=== PATIENT | female | born 1940 | race Two or more races ===

== ENCOUNTER 2017-12-12 15:11 | Inpatient (IN) | payer OTHER ==
[2017-12-12] MEDS ORDERED: fentaNYL 100 MCG/2 ML INJ ONE (15:18)
[2017-12-12] MEDS ORDERED: LIDOCAINE 1% 300 MG/30 ML SDV ONE (15:18)
[2017-12-12] MEDS ORDERED: ASPIRIN 81 MG CHEWABLE TAB ONE (15:18)
[2017-12-12] MEDS ORDERED: IOPAMIDOL (ISOVUE-370) 150 ML BTL IV ONE (15:19)
[2017-12-12] MEDS ORDERED: MIDAZOLAM 2 MG/2 ML VIAL ONE ×2 (15:19)
[2017-12-12] MEDS ORDERED: ASPIRIN 81 MG CHEWABLE TAB PO ONE (15:20)
--- NOTE | 2017-12-12 15:22 | EDPHY ---
H & P Time Seen by Provider: 12/12/17 15:11 HPI/ROS: CHIEF COMPLAINT: Chest pain cardiac alert HISTORY OF PRESENT ILLNESS: Brought in by EMS after she started having substernal chest discomfort at 2:45 p.m.. Initial EMS EKG was negative but on arrival he called a cardiac alert for ST changes. Patient denies cough shortness of breath diaphoresis or radiation. Not better worse with anything. Symptoms moderate. She refused aspirin from EMS because of a history of ulcers REVIEW OF SYSTEMS: Eye: no change in vision ENT: no sore throat Cardiac: HPI Pulmonary: no cough or SOB Abdomen: no vomiting, diarrhea, abdominal pain Musculoskeletal: no back pain Skin: no rash Neuro: no headache Constitutional: no fever : no urinary symptoms A comprehensive 10 point review of systems is otherwise negative aside from elements mentioned in the history of present illness. PAST MEDICAL HISTORY: Reflux and gastric ulcer Social history: , arrives at 3:20 p.m. And is able to speak with Dr. Cordoba. General Appearance: Alert and conversant, cooperative. Eyes: No scleral icterus. ENT, Mouth: Normal mucous membranes. Respiratory: Normal respiratory effort, breath sounds equal, lungs are clear to auscultation. Cardiovascular: Regular rate and rhythm. Gastrointestinal: Abdomen is soft and non tender. Neurological: Alert, face symmetric, normal motor and sensory in extremities. Skin: Warm and dry, no rashes. Musculoskeletal: No peripheral edema. Psychiatric: Not agitated. Emergency Department course/MDM: EKG personally interpreted shows acute inferior ST elevation AR. Cardiac alert called and Dr. Cordoba is present at bedside will take the patient directly to the catheterization lab. Oral aspirin. Further diagnostic and therapeutic deferred to emergent transport to the catheterization lab. Constitutional: Initial Vital Signs Temperature (C) 36.5 C 12/12/17 15:11 Heart Rate 57 L 12/12/17 15:11 Respiratory Rate 20 12/12/17 15:11 Blood Pressure 85/49 L 12/12/17 15:11 O2 Sat (%) 97 12/12/17 15:11 O2 Delivery Mode Room Air Allergies/Adverse Reactions: No Known Allergies Allergy (Verified 12/12/17 20:09) Home Medications: Medication Instructions Recorded Cholecalciferol Vit D3 [Vitamin D3 1,000 units PO DAILY 12/12/17 (*)] Herbals/Supplements -Info Only 1 tab PO DAILY 12/12/17 Lansoprazole [Prevacid] 15 mg PO DAILY 12/12/17 Magnesium Oxide [Magnesium Oxide 400 mg PO DAILY 12/12/17 400 mg (*)] Melatonin [Melatonin 3 MG (*)] 3 mg PO HS PRN 12/12/17 Multivitamins [Multivitamin (*)] 1 tab PO DAILY 12/12/17 Medical Decision Making - Diagnostics EKG Interpretation: 12-lead EKG interpreted by me; official reading is in trace master. My interpretation is sinus rhythm rate 98, acute inferior ST-elevation pattern consistent with myocardial infarction. Differential Diagnosis: Differential diagnosis considered for chest pain including but not limited to myocardial ischemia, aortic dissection, pericarditis, pulmonary embolus, chest wall pain, pleural inflammation and pulmonary infectious causes. Critical Care Time: Critical care time spent by me, Dr. Crockett, exclusively with the care of this patient was 15 minutes, exclusive of PA or CYBER SECURITY SYSTEMS ENGINEER time and exclusive of separate procedures. The organ system at risk was cardiovascular and I ordered oral aspirin, cardiology consultation and cardiac alert, to stabilize the patient and prevent worsening of the patient's condition. - Data Points Laboratory Results: Laboratory Results 12/12/17 15:18 12/12/17 15:18 12/12/17 12/12/17 12/12/17 15:18 15:18 15:18 WBC 10.38 10^3/uL H 10^3/uL (3.80-9.50) RBC 4.47 10^6/uL 10^6/uL (4.18-5.33) Hgb 12.8 g/dL g/dL (12.6-16.3) Hct 38.8 % % (38.0-47.0) MCV 86.8 fL fL (81.5-99.8) MCH 28.6 pg pg (27.9-34.1) MCHC 33.0 g/dL g/dL (32.4-36.7) RDW 13.2 % % (11.5-15.2) Plt Count 259 10^3/uL 10^3/uL (150-400) MPV 10.1 fL fL (8.7-11.7) Neut % (Auto) 49.9 % % (39.3-74.2) Lymph % (Auto) 39.4 % % (15.0-45.0) [place] % (Auto) 7.3 % % (4.5-13.0) Eos % (Auto) 2.7 % % (0.6-7.6) Baso % (Auto) 0.4 % % (0.3-1.7) Nucleat RBC Rel Count 0.0 % % (0.0-0.2) Absolute Neuts (auto) 5.18 10^3/uL 10^3/uL (1.70-6.50) Absolute Lymphs (auto) 4.09 10^3/uL H 10^3/uL (1.00-3.00) Absolute Monos (auto) 0.76 10^3/uL 10^3/uL (0.30-0.80) Absolute Eos (auto) 0.28 10^3/uL 10^3/uL (0.03-0.40) Absolute Basos (auto) 0.04 10^3/uL 10^3/uL (0.02-0.10) Absolute Nucleated RBC 0.00 10^3/uL 10^3/uL (0-0.01) Immature Gran % 0.3 % % (0.0-1.1) Immature Gran # 0.03 10^3/uL 10^3/uL (0.00-0.10) PT 14.8 SEC SEC (12.0-15.0) INR 1.14 (0.83-1.16) APTT 25.7 SEC SEC (23.0-38.0) Sodium 136 mEq/L mEq/L (135-145) Potassium 4.2 mEq/L mEq/L (3.5-5.2) Chloride 101 mEq/L mEq/L (97-110) Carbon Dioxide 26 mEq/l mEq/l (22-31) Anion Gap 9 mEq/L mEq/L (8-16) BUN 18 mg/dL mg/dL (7-23) Creatinine 0.8 mg/dL mg/dL (0.6-1.0) Estimated GFR > 60 Glucose 140 mg/dL H mg/dL (70-100) Calcium 9.0 mg/dL mg/dL (8.5-10.4) Magnesium CK-MB (CK-2) Fraction 1.55 ng/mL ng/mL (0.00-3.19) Troponin I < 0.012 ng/mL ng/mL (0.000-0.034) 12/12/17 15:00 WBC RBC Hgb Hct MCV MCH MCHC RDW Plt Count MPV Neut % (Auto) Lymph % (Auto) [place] % (Auto) Eos % (Auto) Baso % (Auto) Nucleat RBC Rel Count Absolute Neuts (auto) Absolute Lymphs (auto) Absolute Monos (auto) Absolute Eos (auto) Absolute Basos (auto) Absolute Nucleated RBC Immature Gran % Immature Gran # PT INR APTT Sodium Potassium Chloride Carbon Dioxide Anion Gap BUN Creatinine Estimated GFR Glucose Calcium Magnesium 1.8 mg/dL mg/dL (1.6-2.3) CK-MB (CK-2) Fraction Troponin I Medications Given: Amiodarone HCl 540 mg/ (Dextrose) 300 mls @ 16.667 mls/hr IV ONCE ONE Stop: 12/13/17 16:29 Last Admin: 12/12/17 22:07 Dose: 300 mls Sodium Chloride (Ns) 1,000 mls @ 100 mls/hr IV CONT DENA Stop: 12/13/17 03:14 Last Admin: 12/12/17 18:41 Dose: 1,000 mls Phenylephrine HCl 50 mg/ (Dextrose) 250 mls @ 0 mls/hr IV CONT DENA; Titrate PRN Reason: Protocol Stop: 06/10/18 17:59 Last Admin: 12/12/17 18:40 Dose: 250 mls Ondansetron HCl (Zofran) 2 - 4 mg IVP Q6HRS PRN PRN Reason: Nausea/Vomiting, Can't Take PO Stop: 06/10/18 17:12 Last Admin: 12/12/17 17:20 Dose: 4 mg Discontinued Medications Aspirin (Aspirin) 324 mg PO EDNOW ONE Stop: 12/12/17 15:21 Last Admin: 12/12/17 15:22 Dose: 324 mg Aspirin Buffered (Aspirin Ec) 325 mg PO ONCE ONE Stop: 12/12/17 17:14 Last Admin: 12/12/17 18:10 Dose: 325 mg Amiodarone HCl (Amiodarone Hcl) 200 mls @ 33.333 mls/hr IV ONCE ONE PRN Reason: Protocol Stop: 12/12/17 22:29 Last Admin: 12/12/17 18:34 Dose: 200 mls Ticagrelor (Brilinta) 180 mg PO ONCE ONE Stop: 12/12/17 17:14 Last Admin: 12/12/17 18:10 Dose: 180 mg Departure - Departure Disposition: To OP Cath/Surgery Clinical Impression: Acute AR Qualifiers: Myocardial infarction type: ST elevation myocardial infarction Involved coronary artery: unspecified coronary artery Qualified Code(s): I21.3 - ST elevation (STEMI) myocardial infarction of unspecified site Condition: Serious
[2017-12-12] MEDS ORDERED: BIVALIRUDIN 250 MG/5 ML VIAL IV ONE (15:23)
[2017-12-12 15:24] LABS: PLATELET COUNT 259 10^3/uL (150-400)
--- NOTE | 2017-12-12 15:28 | CPEKG ---
Heart Rate: 98 RR Interval: 612 P-R Interval: 144 QRSD Interval: 74 QT Interval: 416 QTC Interval: 532 P [place]: 44 QRS [place]: 57 T Wave [place]: 99 EKG Severity - ABNORMAL ECG - EKG Impression: SINUS RHYTHM EKG Impression: RUN OF VENTRICULAR PREMATURE COMPLEXES EKG Impression: ST ELEVATION, PROBABLE INFERIOR INJURY EKG Impression: ABNORMAL T, PROBABLE ISCHEMIA, ANT-LAT LEADS Electronically Signed By: Herb Crockett 12-Dec-2017 15:32:37
[2017-12-12] MEDS ORDERED: ONDANSETRON 4 MG/2 ML VIAL ONE ×2 (15:30→17:17)
[2017-12-12 15:32] LABS: INR 1.14 (0.83-1.16); PROTIME(PATIENT) 14.8 SEC (12.0-15.0)
--- NOTE | 2017-12-12 15:34 | PDPROPOC ---
Sedation Plan of Care Sedation Plan of Care: vital signs stable, mental status noted, patient educated of risks, benefits, alternatives, patient can tolerate sedation ASA Classification: ASA 3 Planned drugs: fentanyl, midazolam Mallampati Score: Class 1 Mallampati Reference Image: Patient passed 3-3-2 rule?: Yes
[2017-12-12] MEDS ORDERED: ATROPINE SULFATE 1 MG/10 ML SYR ONE ×2 (15:38→17:12)
--- NOTE | 2017-12-12 15:43 | PDHPUP ---
History & Physical Update H&P update statement: This history and physical update is based on an assessment of the patient which was completed after admission or registration (within 24 hours), but prior to the surgery/procedure. H&P update: H&P reviewed & patient examined, no change in patient's condition since H&P completed (See H&P dictated STAT.)
--- NOTE | 2017-12-12 15:58 | GHP ---
[f rep st] HISTORY AND PHYSICAL DATE OF ADMISSION: 12/12/2017 REASON FOR ADMISSION: Acute inferior ST-segment elevation myocardial infarction. HISTORY OF PRESENT ILLNESS: The patient is a 77-year-old woman who has no prior cardiac history. Th is afternoon, she was hiking when she began to develop significant chest pressure with some associate d shortness of breath. She returned home and laid down. She became very lightheaded. Her a ctivated the 911 system. En route and in the emergency room, ECG tracings demonstrate 1-[address] of infe rior ST-segment elevation. There are no reciprocal changes. She continues to have chest discomfort. PAST MEDICAL HISTORY: Notable for peptic ulcer disease/GERD. She does not have a history of hyperte nsion or type 2 diabetes. She states that she does have elevated cholesterol, but is not taking medi cation for it. PAST SURGICAL HISTORY: No past surgeries. FAMILY HISTORY: No family history of cardiac problems. SOCIAL HISTORY: She is . She is a nonsmoker. She does not consume alcohol. REVIEW OF SYSTEMS: Apart from the chest discomfort that prompted today's hospital encounter, a 10-po int review was negative. PHYSICAL EXAMINATION: VITAL SIGNS: Heart rate in the 70s with normal sinus rhythm on the monitor. Blood pressure 130/80. O2 saturation 96% on 2 L of nasal cannula oxygen. GENERAL: This is a 77-yea r-old woman who appears to be in moderate distress. She is alert and oriented. HEENT: Head a nd neck: No scleral icterus. Mucous membranes moist. Carotid pulses 2+ without bruits. There is n o JVD. CHEST: Lung cortez clear anteriorly. CARDIAC: Regular rate and rhythm with a normal S1 and S2. No murmur or gallop. ABDOMEN: Soft, nontender, nondistended, with normal bowel sounds. EXTRE MITIES: 2+ pulses and no peripheral edema. ECG: ECG demonstrates normal sinus rhythm with 1-[address]-segment elevation. There are n o Q-waves or conduction system disturbances. There were no reciprocal changes. LABORATORY: Pending at the time of this dictation. IMPRESSION: This is a 77-year-old woman early in the course of an acute inferior ST-segment elevatio n myocardial infarction. She has not had any significant arrhythmias. She is hemodynamically stable without evidence of congestive heart failure. PLAN: Preparations are underway to take the patient emergently to the cardiac cathode ray tube assembler for angiograp hy and probable PCI. She will require a hospital stay of greater than 2 midnights to care for her ac [place] myocardial infarction. /[id number]/MODL
[2017-12-12] MEDS ORDERED: PHENYLEPHRINE HCL 100 MCG/ML SYR ONE (16:01)
[2017-12-12] MEDS ORDERED: AMIODARONE HCL 150 MG/3 ML VIAL ONE (16:02)
[2017-12-12] MEDS ORDERED: DOPamine/DEXTROSE/250 ML BAG IV ONE (16:10)
[2017-12-12] MEDS ORDERED: AMIODARONE HCL 200 ML IV ONE (16:13)
[2017-12-12] MEDS ORDERED: EPTIFIBATIDE 200 MG/100 ML BOTTLE IV ONE (16:20)
[2017-12-12] MEDS ORDERED: AMIODARONE A.FIB-6HR INFSN (ORDER 2/3) PREMIX IV ONE (16:30)
--- NOTE | 2017-12-12 16:48 | CPEKG ---
Heart Rate: 134 RR Interval: 448 QRSD Interval: 80 QT Interval: 332 QTC Interval: 496 QRS [place]: 85 T Wave [place]: 81 EKG Severity - ABNORMAL ECG - EKG Impression: ATRIAL FIBRILLATION EKG Impression: INFERIOR INJURY, PROBABLE EARLY ACUTE INFARCT EKG Impression: BORDERLINE PROLONGED QT INTERVAL Electronically Signed By: Bo Martinez 13-Dec-2017 11:28:17
[2017-12-12] MEDS ORDERED: LORazepam 2 MG/ML INJ IVP PRN (17:13)
[2017-12-12] MEDS ORDERED: TEMAZEPAM 15 MG CAP PO PRN (17:13)
[2017-12-12] MEDS ORDERED: TICAGRELOR 90 MG TAB PO ONE (17:13)
[2017-12-12] MEDS ORDERED: ASPIRIN EC 325 MG TAB PO ONE (17:13)
[2017-12-12] MEDS ORDERED: ATROPINE SULFATE 1 MG/10 ML SYR IVP PRN (17:13)
[2017-12-12] MEDS ORDERED: HYDROCODONE/APAP 5/325 TAB PO PRN (17:13)
[2017-12-12] MEDS ORDERED: NITROGLYCERIN 0.4 MG BTL SL PRN (17:13)
[2017-12-12] MEDS ORDERED: NS 1,000 ML IV SCH (17:15)
[2017-12-12] MEDS: ONDANSETRON 4 MG/2 ML VIAL IVP PRN (17:20)
[2017-12-12] MEDS ORDERED: AMIODARONE HCL 200 ML IV SCH (17:30)
--- NOTE | 2017-12-12 17:39 | PDDXCAT ---
Diagnostic Cath Note - . Date: 12/12/17 Family Service Worker: Adalid Indication: other (Acute inferior STEMI) - Procedure Access: right groin Procedure: left heart catheterization, coronary angiography, left ventriculogram , other (PCI of the RCA) - Materials Left Heart Cath size: 6F Left Heart Cath materials: standard multipack (JL4, JR4, pigtail) - Findings-Left Heart Catheterization LM: Distal left main approximately 40%. LAD: Ostial LAD 60-70%; otherwise mild irregularities. LCX: Small cirumflex system with mild irregularites. RCA: Proximal to mid-RCA with diffuse moderate disease; mid-RCA with a focal > 90% lesion; JALYN I to II flow in the distal RCA. LVEF: 65-70% Wall motion: Inferior hypokinesis. Complications: VF x 1, hypotension, bradycardia, and atrial fibrillation with RVR. Estimated blood loss: <100ml Closure method: other (RFA and RFV sheaths sewn in place.) Assessment: 1) Acute inferior STEMI. 2) CAD as described above. 3) Successful PCI of the RCA using a single drug coated stent. Intervention: Based on the patient's clinical history and diagnostic angiography, the decision was made to perform percutaneous coronary intervention of the RCA. The patient received intravenous Angiomax. A 6 [place] JR 4 guide catheter was advanced to the right coronary ostium. An Intuition guidewire was advanced to the distal RCA. Predilatation of the high-grade, focal lesion in the mid-RCA was performed using a 2.5 x 12 mm Emerge balloon. The elapsed time from the patient's arrival at the hospital until the first inflation was 46 minutes. At this point, angiography demonstrated a lengthy segment of moderate disease throughout the proximal to mid RCA. A 3.5 x 38 mm Synergy stent was positioned in the proximal to distal RCA and was deployed at high pressure. Subsequent angiography demonstrated 0% residual stenosis and JALYN II to III flow distally. Shortly after the initial balloon inflation, the patient developed ventricular fibrillation which responded to a single 360 J defibrillation. She also demonstrated periods of profound bradycardia. Please refer to the laboratory animal facility supervisor control room record for doses of Tremaine-Synephrine, epinephrine, atropine that were administered. The patient received CPR for approximately 45 seconds at one point in time because of profound bradycardia/hypotension. Later in the procedure, she demonstrated atrial fibrillation with a rapid ventricular response. After completion of her procedure, additional sedation was given followed by a 200 J synchronized cardioversion which was successful in restoring normal sinus rhythm. She was transported to the intensive care unit on intravenous amiodarone, dopamine, and Integrilin Patient Problems: Problems Problem Status Onset Acute IA Acute
[2017-12-12] MEDS ORDERED: EPTIFIBATIDE 100 ML IV SCH (18:00)
[2017-12-12] MEDS ORDERED: PHENYLEPHRINE HCL 50 MG in D5W 250 ML IV SCH (18:00)
[2017-12-12 19:11] LABS: CREATINE KINASE 86 IU/L (0-156)
--- NOTE | 2017-12-12 19:54 | CPEKG ---
Heart Rate: 65 RR Interval: 923 P-R Interval: 148 QRSD Interval: 72 QT Interval: 432 QTC Interval: 450 P [place]: -11 QRS [place]: 33 T Wave [place]: -62 EKG Severity - ABNORMAL ECG - EKG Impression: SINUS RHYTHM EKG Impression: LOW VOLTAGE THROUGHOUT EKG Impression: NONSPECIFIC T ABNORMALITIES, DIFFUSE LEADS Electronically Signed By: Bo Martinez 13-Dec-2017 07:37:15
[2017-12-12] MEDS ORDERED: AMIODARONE HCL 540 MG in D5W 300 ML IV ONE (22:30)
[2017-12-13 02:07] LABS: CREATINE KINASE 271 IU/L (0-156)
[2017-12-13 05:53] LABS: PLATELET COUNT 243 10^3/uL (150-400)
[2017-12-13] MEDS: TICAGRELOR 90 MG TAB PO SCH ×3 (06:31→21:30)
--- NOTE | 2017-12-13 08:54 | CPEKG ---
Heart Rate: 63 RR Interval: 952 P-R Interval: 152 QRSD Interval: 62 QT Interval: 488 QTC Interval: 500 P [place]: -8 QRS [place]: 13 T Wave [place]: -76 EKG Severity - ABNORMAL ECG - EKG Impression: SINUS RHYTHM EKG Impression: LOW VOLTAGE IN FRONTAL LEADS EKG Impression: CONSIDER ANTEROSEPTAL INFARCT EKG Impression: NONSPECIFIC T ABNORMALITIES, DIFFUSE LEADS EKG Impression: BORDERLINE PROLONGED QT INTERVAL Electronically Signed By: Bo Martinez 13-Dec-2017 11:27:59
[2017-12-13] MEDS: ATORVASTATIN CALCIUM 20 MG TAB PO SCH (09:10)
[2017-12-13] MEDS: ASPIRIN EC 81 MG TAB PO SCH (09:10)
--- NOTE | 2017-12-13 10:04 | PDMN ---
Medical Necessity Medical necessity: M230 CO: 2 days: acute inferior ST-segment elevation CO
--- NOTE | 2017-12-13 10:25 | ECHO ---
[email or web address] [address] [address] Main: [phone] Fax: Transthoracic Echocardiogram Name: JAIRON ONEAL MR#: [id number] Study Date: 12/13/2017 Study Time: 07:51 AM Date of : 1940 Age: 77 year(s) Height: 127 cm (50 in.) Weight: 47.63 kg (105 lb.) BSA: 1.24 m2 Gender: Female Examination: Echo Indication: Inferior STEMI Image Quality: Adequate Contrast: Requested by: Serafin Cordoba BP: 99 mmHg/51 mmHg Heart Rate: Rhythm: Indication: Inferior STEMI Procedure Staff Heel Burnisher: Willow Brock [facility] [place] Reading Physician: Serafin Cordoba MD Requesting Provider: Conclusions: Normal size left ventricle. The ejection fraction is estimated to be 50-55 %. There appears to be hypokinesis of the basal inferolateral wall. Normal appearing valvular structures. Mild to moderate mitral regurgitation. Moderate tricuspid regurgitation is present. No pericardial effusion. Measurements: Chambers Valvular Assessment AV/MV Valvular Assessment TV/PV Normal Normal Normal Name Value Range Name Value Range Name Value Range Ao [place] (2D): 2.4 cm (1.4 cm-2.6 AV Vmax: 0.96 m/s (1 m/s-1.7 TR Vmax: 3.03 mm/s ( - ) cm) m/s) TR PGmax: 37 mmHg ( - ) IVSd (2D): 0.8 cm (0.6 cm-1.1 AV maxP mmHg ( - ) syst. PAP: 47 mmHg ( - ) cm) AV meanP mmHg ( - ) PV Vmax: 0.62 m/s (0.6 m/s-0.9 LVDd (2D): 3.8 cm (3.9 cm-5.3 LVOT Vmax: 0.72 m/s (0.7 m/s-1.1 m/s) cm) m/s) PV PGmax: 2 mmHg ( - ) LVDs (2D): 2.7 cm (2.1 cm-4 DIONE (Vmax): 1.7 cm2 ( - ) cm) DIONE (VTI): 1.3 cm ( - ) LVPWd (2D): 0.8 cm ( - ) MV E Vmax: 0.62 m/s ( - ) LVOTd 1.7 cm 1.7 cm mm MV A Vmax: 0.55 m/s ( - ) LVEF (2D): 54 (>=54 %) MV E/A: 1.13 ( - ) EF Range: 50-55 % MV PHT: 0.044 s ( - ) RVDd(2D): 2.0 cm (1.9 cm-3.8 MVA (PHT): 5.0 s ( - ) cmmm) Continued Measurements: Chambers Valvular Assessment AV/MV Valvular Assessment TV/PV Patient: JAIRON ONEAL Study Date: 12/13/2017 Page 1 of 2 07:51 AM Name Value Name Value Name Value LADs: 2.8 cm MV DecTime: 137 m/s CVP (est.): 10 mmHg LADs Lon.6 cm MV E/E' Septal: 7.70 LA Area: 13.8 cm2 MV E/E' Lateral: 6.50 RA Area: 16.1 cm2 MR ERO: 0.190 cm2 MR PISA radius: 6 mm MR Reg. Volume: 30 ml Additional Vessels Name Value Ao Ascendin.5 cm Inferior Vena Cava: 2.2 cm Findings: Left Ventricle: Normal size left ventricle. The ejection fraction is estimated to be 50-55 %. Regional wall motion abnormality noted. There appears to be hypokinesis of the basal inferolateral wall. Right Ventricle: Normal size right ventricle. Left Atrium: The left atrium is normal in size. Right Atrium: The right atrium is normal in size. Mitral Valve: The mitral valve is normal in appearance. Mild to moderate mitral regurgitation. No mitral stenosis is present. Aortic Valve: The aortic valve is normal in appearance. There is no aortic valve regurgitation. No aortic valve stenosis is present. Tricuspid Valve: Moderate tricuspid regurgitation is present. Pulmonic Valve: Mild pulmonic valve regurgitation is noted. IVC: The IVC is dilated. There is no inspiratory collapse of the IVC. Pericardium: No pericardial effusion. No pleural effusion. (No Signature Object) Patient: JAIRON ONEAL Study Date: 12/13/2017 Page 2 of 2 07:51 AM [id number]
[2017-12-13] MEDS: PANTOPRAZOLE SODIUM 40 MG TAB PO SCH (10:28)
--- NOTE | 2017-12-13 11:32 | ASMTCASEMG ---
Living Arrangements What is your living Answers: With Spouse arrangement? Who do you live with? Type Of Residence What kind of residence do Answers: Apartment you live in? Discharge Plan Comments Coordination Status Comments Notes: Patient is a 77yo female with no prior cardiac history, who was admitted for an acute inferior ST-segment elevation myocardial infarction. She was taken emergently to the cardiac lab for angiography and proble PCI. No therapies ordered at this time. D/C plan TBD. CM will follow. Date Signed: 12/13/2017 11:31 AM Electronically Signed By:Bessie Evans LCSW
[2017-12-13 11:36] LABS: CREATINE KINASE 322 IU/L (0-156)
--- NOTE | 2017-12-13 14:40 | PDCARPN ---
Cardiology Progress Note Assessment/Plan: Acute Inferior STEMI: initial course complicated by VF, hypotension and a-fib/ RVR; s/p PCI of the RCA using single drug coated stent; no chest pain; ST elevation resolved; no CHF symptoms; CPK up to 322 so far; overall preserved LVEF on echo. - check one more set of enzymes to confirm peak. - dual antiplatelet therapy for 12 months. - start low dose beta lori. Coronary Artery Disease: has residual proximal LAD lesion of 60-70%. - medical therapy for now; can have an assessment for anterior ischemia with her [place] providers. Secondary Prevention: LDL cholesterol 97 this a.m.; goal LDL is < 70. - atorvastatin started. - beta blockade. - no indication for DEYVI-I/ARB. Atrial Fibrillation: maintaining NSR following cardioversion at end of cath case. - d/c IV amiodarone. - no systemic anticoagulation unless has a recurrence. Disposition: - transfer to PCU today. - ambulate. - possibly home tomorrow. 12/13/17 14:36 Subjective: No chest pain. Objective: Vital Signs (8 Hrs) Temp Pulse Resp BP Pulse Ox 12/13/17 12:00 36.2 C 63 12 100/57 L 93 12/13/17 10:00 60 17 102/52 L 95 12/13/17 09:00 60 17 103/49 L 95 12/13/17 08:00 62 17 104/51 L 94 12/13/17 07:00 36.7 C 60 16 103/53 L 95 Intake/Output (24 Hrs) 12/12/17 12/13/17 12/14/17 05:59 05:59 05:59 Intake Total 1642 450 Output Total 800 500 Balance 842 -50 Intake: Oral (ml) 100 450 IV Intake (ml) 1178 IV Infused (ml) 364 Amiodarone HCl 200 ml @ 141 33.333 mls/hr IV ONCE ONE Rx#:[id number] Eptifibatide 100 ml @ 1.5 21 mls/hr IV CONT [facility] Rx#: [id number] Phenylephrine HCl 50 mg 202 In D5w 250 ml @ Titrate IV CONT DENA Rx#: [id number] Output: Urine (ml) 800 500 Bedside Commode 500 Urinal 800 Other: Weight 47.627 kg Number of Voids Urinal 5 Result Diagrams: 12/13/17 05:40 12/13/17 05:40 Cardiac Labs: Cardiac Lab Results (72 Hrs) 12/13/17 12/13/17 12/12/17 11:12 01:30 18:20 CK-MB (CK-2) Fraction 36.60 H 37.10 H 6.66 H Troponin I 4.010 H 3.690 H 0.307 H - Physical Exam Constitutional: no apparent distress Eyes: anicteric sclera Ears, Nose, Mouth, Throat: moist mucous membranes Cardiovascular: regular rate and rhythm, no murmurs, no gallops Respiratory: clear to auscultate bilat Gastrointestinal: normoactive bowel sounds, no tenderness Skin: no edema Neurologic: AAOx3 Psychiatric: cooperative, not anxious ICD10 Worksheet Patient Problems: Problems Problem Status Onset Acute SD Acute
[2017-12-13] MEDS: ONDANSETRON 4 MG/2 ML VIAL IVP PRN (17:17)
[2017-12-13 17:47] LABS: CREATINE KINASE 315 IU/L (0-156)
[2017-12-13] MEDS: CARVEDILOL 3.125 MG TAB PO SCH (19:12)
[2017-12-14 07:40] VITALS: RESP 20; TEMP 98.5; O2SAT 92
[2017-12-14] MEDS: CARVEDILOL 3.125 MG TAB PO SCH (08:17)
[2017-12-14] MEDS: PANTOPRAZOLE SODIUM 40 MG TAB PO SCH (08:17)
[2017-12-14] MEDS: ASPIRIN EC 81 MG TAB PO SCH (08:17)
[2017-12-14] MEDS: ATORVASTATIN CALCIUM 20 MG TAB PO SCH (08:17)
[2017-12-14 08:18] VITALS: BP 114/67; PULSE 81
[2017-12-14] MEDS: TICAGRELOR 90 MG TAB PO SCH (08:18)
--- NOTE | 2017-12-14 08:44 | CPEKG ---
Heart Rate: 87 RR Interval: 690 P-R Interval: 136 QRSD Interval: 76 QT Interval: 404 QTC Interval: 486 P [place]: 58 QRS [place]: 66 T Wave [place]: -68 EKG Severity - ABNORMAL ECG - EKG Impression: SINUS RHYTHM EKG Impression: VENTRICULAR PREMATURE COMPLEX EKG Impression: LOW VOLTAGE IN FRONTAL LEADS EKG Impression: ABNORMAL T, PROBABLE ISCHEMIA, INFERIOR LEADS EKG Impression: BORDERLINE PROLONGED QT INTERVAL Electronically Signed By: Bo Martinez 14-Dec-2017 15:24:55
[2017-12-14] MEDS ORDERED: MELATONIN 3 MG TAB PO PRN (10:02)
--- NOTE | 2017-12-14 15:44 | GDS ---
[f rep st] DISCHARGE SUMMARY REASON FOR ADMISSION: Acute inferior ST-segment elevation myocardial infarction. HOSPITAL COURSE: Please refer to my dictated history and physical and cardiac agriculture laborer procedure rep ort. Briefly, Ms Guzman is a 77-year-old female with a history of mild hyperlipidemia but no prior ca rdiac history. She developed chest discomfort while hiking. She returned home, and when her arrived a short time later, she was still having discomfort. Paramedics were summoned, and she was brought to the hospital. Her initial ECG demonstrated inferior ST-segment elevation, consistent with an acute myocardial infarction. She was taken to the cardiac agriculture laborer where she was found to have o verall preserved left ventricular systolic function with inferior hypokinesis. The left anterior attila cending had an ostial stenosis of approximately 60% to 70%. The circumflex had mild irregularities. The RCA had a greater than 90% focal lesion in its midportion with moderate disease proximal and dis narendra to this high-grade stenosis. She underwent PCI with placement of a single 3.5 x [address] ug-coated stent in the [id number] LAD. The initial phase of her hospital course was marked by significant instability. She had ventricular fibrillation shortly after the first balloon inflation. This was corrected with a single unsynchroni zed defibrillation. She had episodes of profound bradycardia and hypotension, requiring doses of int ravenous Tremaine-Synephrine and atropine, Tremaine-Synephrine, and dopamine drip. Later during her procedure, she developed atrial fibrillation with a rapid ventricular response. She was cardioverted prior to leaving the agriculture laborer. Because of continued tachycardia, her dopamine was discontinued in favor of in travenous Tremaine-Synephrine. Her peak CPK was modest at 322. Her peak troponin was 4.01. Through the rest of her course, she did not demonstrate any further atrial or ventricular arrhythmias . Her ST-segment elevation was completely resolved on her postprocedural ECG. She did not have any recurrent chest discomfort or evidence of congestive heart failure. An echocardiogram demonstrated a n ejection fraction of 50% to 55% with basal inferolateral hypokinesis. Her cardiac valves had morales l appearance. There was [id number] mitral regurgitation and moderate tricuspid regurgitation. Today, she is stable. She has been ambulating in the hallway. RECOMMENDATIONS AND DISPOSITION: Patient is discharged in stable condition. DISCHARGE MEDICATIONS: Aspirin 81 mg daily, Brilinta 90 mg twice daily, carvedilol 3.125 mg twice da leroy, and atorvastatin 20 mg daily. Her lipid panel during this hospital stay demonstrated a total cholesterol of 160 with HDL 43, LDL 97 , and triglycerides 104. She was advised to follow a heart-healthy diet. She should contact her [facility] provider for a followup appointment in the next 1-2 weeks. DISCHARGE DIAGNOSES: 1. Acute inferior ST-segment elevation myocardial infarction. 2. Coronary artery disease. 3. A single episode of paroxysmal atrial fibrillation during her acute presentation. /[id number]/MODL
[2017-12-15] MEDS ORDERED: CHOLECALCIFEROL VIT D3 1,000 UNITS TAB PO SCH (09:00)
[2017-12-15] MEDS ORDERED: PANTOPRAZOLE SODIUM 40 MG TAB PO SCH (09:00)
[2017-12-15] MEDS ORDERED: NON-FORMULARY NEW DRUG (Lansoprazole [Prevacid] 15 MG) PO SCH (09:00)
[2017-12-15] MEDS ORDERED: MAGNESIUM OXIDE 400 MG TAB PO SCH (09:00)
[2017-12-15] MEDS ORDERED: MULTIVITAMINS 1 EACH TAB PO SCH (09:00)
== END 2017-12-14 11:30 | disposition home or self-care (01) | DRG 246 ==
LOC: EEVIPCON 15:19 → F2N 17:00 → F2W 12-13 17:43
PROVIDERS: ADMIT Internal Medicine Interventional Cardiology; ATTEND Internal Medicine Interventional Cardiology
PROC: B2111ZZ Fluoroscopy of Multiple Coronary Arteries using Low Osmolar Contrast (ICD-10-PCS; principal; 2017-12-12)
PROC: 027034Z Dilation of Coronary Artery, One Artery with Drug-eluting Intraluminal Device, Percutaneous Approach (ICD-10-PCS; principal; 2017-12-12)
PROC: 4A023N7 Measurement of Cardiac Sampling and Pressure, Left Heart, Percutaneous Approach (ICD-10-PCS; principal; 2017-12-12)
PROC: 5A2204Z Restoration of Cardiac Rhythm, Single (ICD-10-PCS; principal; 2017-12-12)
PROC: B2151ZZ Fluoroscopy of Left Heart using Low Osmolar Contrast (ICD-10-PCS; principal; 2017-12-12)
DX: I21.19 ST elevation (STEMI) myocardial infarction involving other coronary artery of inferior wall (principal); I49.01 Ventricular fibrillation; I25.10 Atherosclerotic heart disease of native coronary artery without angina pectoris; E78.5 Hyperlipidemia, unspecified; K21.9 Gastro-esophageal reflux disease without esophagitis; I48.0 Paroxysmal atrial fibrillation; I08.1 Rheumatic disorders of both mitral and tricuspid valves; Z87.11 Personal history of peptic ulcer disease
CPT/HCPCS: 81225-90; C1725; C1769; C1874; C1887; C9606; J0171; J0282; J0461; J0583; J1265; J1327; J1644; J2250; J2370; J2405; J3010; Q9967